=== PATIENT | male | born 1965 | race Caucasian/White ===

== ENCOUNTER 2021-02-16 16:06 | Emergency (ER) | payer OTHER ==
[~2021-02-16] VITALS: Ht 175.3 cm; Wt 104.3 kg
[~2021-02-16 16:06] MED LIST: NOHOMEMEDICATIONS
[2021-02-16] MEDS ORDERED: FLOMAX0.4 MG PO (16:20)
[2021-02-16] MEDS ORDERED: COZAAR 25 MG TA25 M1 PO (16:20)
[2021-02-16] MEDS ORDERED: MOBIC7.5 MG PO (16:20)
[2021-02-16] MEDS ORDERED: TOPROL XL50 MG PO (16:20)
[2021-02-16 17:13] LABS: HEMATOCRIT 52.5 % (42.0-52.0); MCH 30.1 pg (26.0-34.0); MCHC 34.2 g/dL (28.0-37.0); MCV 88.1 fL (80.0-100.0); MPV 7.7 fl. (7.2-11.1); RBC 5.96 mil/uL (4.50-6.00); RDW-CV 13.6 % (10.5-14.5); WBC 13.6 thou/uL (4.0-11.0)
[2021-02-16 17:20] LABS: CALCIUM 9.8 mg/dL (8.5-10.1); CREATININE 1.4 mg/dL (0.6-1.3); POTASSIUM 4.6 mmol/L (3.5-5.1)
[2021-02-16 17:24] LABS: APTT 23.6 Seconds (25.0-31.3); PROTIME 10.4 Seconds (9.20-11.50)
[2021-02-16] MEDS ORDERED: DOXYCYCLINE 10100 M2 PO (17:38)
[2021-02-16] MEDS ORDERED: DIPHENHIST50 MG PO (17:38)
[2021-02-16] MEDS ORDERED: HYDROCODON-ACE1 EAC7 PO (17:51)
[2021-02-16 17:54] VITALS: BP 132/85
== END 2021-02-16 17:55 | disposition home or self-care (01) ==
LOC: M.ERS 16:06
PROVIDERS: Emergency Medicine Emergency Medical Services
DX: T63.331A Toxic effect of venom of brown recluse spider, accidental (unintentional), initial encounter (principal); I10 Essential (primary) hypertension; Z96.641 Presence of right artificial hip joint; Y92.89 Other specified places as the place of occurrence of the external cause